=== PATIENT | female | born 1990 | race Caucasian/White ===

== ENCOUNTER 2018-09-27 14:59 | Observation (INO) | payer MEDICAID ==
[~2018-09-27 14:59] MED LIST: PREN-96 PO
== END 2018-09-27 16:22 | disposition home or self-care (01) | DRG 566 ==
LOC: LDRP 14:59
PROVIDERS: ADMIT Obstetrics & Gynecology; ATTEND Obstetrics & Gynecology
DX: O40.3XX0 Polyhydramnios, third trimester, not applicable or unspecified (principal); O99.333 Smoking (tobacco) complicating pregnancy, third trimester; F17.210 Nicotine dependence, cigarettes, uncomplicated; Z3A.33 33 weeks gestation of pregnancy
CPT/HCPCS: 76818; G0378; 59025; 81002

== ENCOUNTER 2018-10-04 11:10 | Observation (INO) | payer MEDICAID ==
[~2018-10-04] VITALS: Ht 165.1 cm; Wt 72.6 kg
[2018-10-04] MEDS ORDERED: TERBUTALINE SULFATE 1 MG/ML 1ML VIAL SC PRN (12:30)
[2018-10-04] MEDS ORDERED: LACTATED RINGER'S 1,000 ML IV ONE (13:00)
== END 2018-10-04 13:55 | disposition home or self-care (01) | DRG 566 ==
LOC: LDRP 11:10
PROVIDERS: ADMIT Obstetrics & Gynecology; ATTEND Obstetrics & Gynecology
DX: O40.3XX0 Polyhydramnios, third trimester, not applicable or unspecified (principal); O26.893 Other specified pregnancy related conditions, third trimester; F17.210 Nicotine dependence, cigarettes, uncomplicated; R11.0 Nausea; O99.333 Smoking (tobacco) complicating pregnancy, third trimester; Z3A.34 34 weeks gestation of pregnancy
CPT/HCPCS: 59025; 76818; 81002; 96372; G0378; J3105; 96361

== ENCOUNTER 2018-10-11 08:32 | Observation (INO) | payer MEDICAID | END 2018-10-11 12:30 | disposition home or self-care (01) | DRG 566 | LOC: LDRP 11:00 | PROVIDERS: ADMIT Specialist; ATTEND Specialist | DX: O26.893 Other specified pregnancy related conditions, third trimester (principal); F17.210 Nicotine dependence, cigarettes, uncomplicated; O99.333 Smoking (tobacco) complicating pregnancy, third trimester; Z3A.35 35 weeks gestation of pregnancy | CPT/HCPCS: 59025; 76818; 81002; G0378 ==

== ENCOUNTER 2018-10-18 10:16 | Observation (INO) | payer MEDICAID ==
[~2018-10-18] VITALS: Ht 30.5 cm; Wt 0.5 kg
[2018-10-21] MEDS ORDERED: LACTATED RINGER'S 1,000 ML IV ONE (14:09)
[2018-10-21] MEDS: TERBUTALINE SULFATE 1 MG/ML 1ML VIAL SC SCH ×2 (14:55→15:19)
== END 2018-10-21 16:20 | disposition left against medical advice (07) | DRG 566 ==
LOC: LDRP 10-21 13:12
PROVIDERS: ADMIT Specialist; ATTEND Specialist
DX: O62.9 Abnormality of forces of labor, unspecified (principal); Z3A.37 37 weeks gestation of pregnancy
CPT/HCPCS: 59025; 81002; 96372; G0378; J3105; 96365; 96366

== ENCOUNTER 2018-10-22 02:55 | Emergency (ER) | payer MEDICAID ==
[~2018-10-22] VITALS: Ht 165.1 cm; Wt 74.4 kg
[2018-10-22 03:15] VITALS: BP 111/71
== END 2018-10-22 05:35 | disposition left against medical advice (07) ==
LOC: ER 02:55
DX: O26.893 Other specified pregnancy related conditions, third trimester (principal); S90.465A Insect bite (nonvenomous), left lesser toe(s), initial encounter; Z3A.37 37 weeks gestation of pregnancy; Z53.21 Procedure and treatment not carried out due to patient leaving prior to being seen by health care provider; W57.XXXA Bitten or stung by nonvenomous insect and other nonvenomous arthropods, initial encounter; Y93.89 Activity, other specified; Y92.89 Other specified places as the place of occurrence of the external cause; Y99.8 Other external cause status